=== PATIENT | male | born 1975 | race Caucasian/White ===

== ENCOUNTER 2018-10-15 09:51 | Outpatient (CLI) | payer BC ==
--- NOTE | 2018-10-15 10:08 | RAD ---
EXAM: XR Abdomen 1 View/KUB PROVIDED CLINICAL HISTORY: Kidney stones. COMPARISON: None FINDINGS: Calcifications overlie the pelvis likely related to phleboliths. No definite suspicious calcification s are seen overlying the expected location of either renal shadow or along the course of either ureter. Bowel gas pattern is nonspecific. Osseous structures have a normal appearance. IMPRESSION: 1. No definite suspicious calcifications are seen. 2. Nonspecific bowel gas pattern.
--- NOTE | 2018-10-15 10:30 | ULT ---
ULTRASOUND RENAL: DATE: 10/15/2018 HISTORY: 43-year-old male with history of kidney stones. FINDINGS: Ultrasound is relatively inaccurate for the detection of small renal calculi. CT would be better. Right kidney: 12 x 5.5 x 5 cm. Left kidney: 11 x 4.5 x 5.5 cm. No hydronephrosis. No moderate sized or large cystic or solid renal mass. Unremarkable urinary bladder. IMPRESSION: Normal renal ultrasound
--- NOTE | 2018-10-15 10:46 | ULT ---
EXAM: Testicular/scrotal ultrasound HISTORY: Testicular pain COMPARISON: None TECHNIQUE: Multiplanar grayscale and color Doppler images were obtained in a testicular/scrotal ultra sound. Spectral analysis of the Doppler waveforms of the testicles were performed. FINDINGS: Right testicle: Normal in echogenicity. No focal mass. Normal internal flow. Left testicle: Normal in echogenicity. No focal mass. Normal internal flow. Right epididymis. Small epididymal cyst. Normal internal flow. Left epididymis. No epididymal cyst. Normal internal flow. Minimal bilateral hydroceles are present. No significant varicocele is present. IMPRESSION: Right epididymal cyst
== END 2018-10-15 09:52 | disposition home or self-care (01) ==
LOC: SCSULT 09:51
PROVIDERS: ATTEND Urology
DX: E83.52 Hypercalcemia (principal); N50.819 Testicular pain, unspecified; N50.9 Disorder of male genital organs, unspecified; I86.1 Scrotal varices; Z87.442 Personal history of urinary calculi; Z98.52 Vasectomy status; N50.3 Cyst of epididymis
CPT/HCPCS: 74018; 76770; 76870; 93976

== ENCOUNTER 2018-11-18 06:06 | Day surgery (SDC) | payer BC ==
[2018-11-18] MEDS ORDERED: Lidocaine 2% PF 5 ML VIAL ONE (06:19)
[2018-11-18] MEDS ORDERED: Bupivacaine HCl 0.5%/Epinephrine 1:200,000/PF 30 ml Vial ONE (06:19)
[2018-11-18] MEDS ORDERED: Fentanyl 100 MCG/2 ML VIAL ONE (06:57)
[2018-11-18] MEDS ORDERED: Midazolam HCl 2 mg/2 ml Vial ONE (06:57)
[2018-11-18] MEDS ORDERED: ceFAZolin Sodium (SDC) 2 GM/100 ML BAG ONE (07:13)
--- NOTE | 2018-11-18 11:18 | OP ---
DATE OF PROCEDURE: 11/18/2018 PREOPERATIVE DIAGNOSES: Soft tissue mass, left arm x4, right arm x2, groin 1. POSTOPERATIVE DIAGNOSES: Soft tissue mass, left arm x4, right arm x2, groin 1. PROCEDURE PERFORMED: Excision of multiple soft tissue masses, 2 cm x7. ANESTHESIA: General. SPECIMENS: All soft tissue mass was sent together due to their benign-appearing nature. ESTIMATED BLOOD LOSS: Minimal. COMPLICATIONS: None. DESCRIPTION OF PROCEDURE: The patient was taken to the operating room and laid supine on the operating room table. After general anesthetic was obtained, his bilateral arms and left groin were shaved, prepped, and draped in a sterile fashion. Incisions were made over each palpable soft tissue mass. There were 4 on the left arm, 2 on the right arm, and 1 in the groin. This soft tissue masses were dissected free from the surrounding subcutaneous fat and removed in their entirety. They were sent to [facility] for final diagnosis. The wounds were irrigated and closed using 3-0 Vicryl, 4-0 Monocryl and Dermabond. The patient was sent to Recovery in stable condition. All instrument counts, needle counts, and lap counts were correct. Job ID: [id number]
[2018-11-18] MEDS ORDERED: PROPOFOL 200 MG/20 ML VIAL ONE (16:04)
[2018-11-18] MEDS ORDERED: Dexamethasone 20 MG/5 ML VIAL ONE (16:04)
[2018-11-18] MEDS ORDERED: Lidocaine 1% PF 5 ML VIAL ONE (16:04)
[2018-11-18] MEDS ORDERED: Ondansetron PF 4 MG/2 ML Vial ONE (16:04)
== END 2018-11-18 10:33 | disposition home or self-care (01) ==
LOC: SDC 06:06
PROVIDERS: ATTEND Surgery
PROC: 0JBH0ZZ Excision of Left Lower Arm Subcutaneous Tissue and Fascia, Open Approach (ICD-10-PCS; principal; 2018-11-18)
PROC: 0JB80ZZ Excision of Abdomen Subcutaneous Tissue and Fascia, Open Approach (ICD-10-PCS; principal; 2018-11-18)
PROC: 0JBG0ZZ Excision of Right Lower Arm Subcutaneous Tissue and Fascia, Open Approach (ICD-10-PCS; principal; 2018-11-18)
DX: D17.1 Benign lipomatous neoplasm of skin and subcutaneous tissue of trunk (principal); D17.21 Benign lipomatous neoplasm of skin and subcutaneous tissue of right arm; D17.22 Benign lipomatous neoplasm of skin and subcutaneous tissue of left arm; F41.9 Anxiety disorder, unspecified; E78.5 Hyperlipidemia, unspecified; G43.909 Migraine, unspecified, not intractable, without status migrainosus; Z88.0 Allergy status to penicillin; Z79.899 Other long term (current) drug therapy
CPT/HCPCS: 88305; J0670; J0690; J2001; J2250; J3010